=== PATIENT | male | born 2000 | race African-American/Black ===

== ENCOUNTER 2018-11-24 08:41 | Emergency (ER) | payer SELFPAY ==
[2018-11-24 09:04] VITALS: BP 124/77; PULSE 75; TEMP 98.3; BMI 27.3
--- NOTE | 2018-11-24 09:15 | PDOC ---
History of Present Illness - General Chief Complaint: Cold Symptoms Stated Complaint: SICK/BODY ACHES Time Seen by Provider: 11/24/18 09:07 History Source: Patient Exam Limitations: No Limitations - History of Present Illness Initial Comments: 11/24/18 09:14 Pt is a 18 y/o M who presents to the ED with 3 days of flu like symptoms. He states he does not feel well and has body aches. He has not been taking anything for his symptoms. Pt did not receive a flu shot this year. Pt also complains of a rash to his hands and groin for 2 weeks. States that the rash is more itchy at night. Past History - Travel Traveled outside of the country in the last 30 days: No Close contact w/someone who was outside of country & ill: No - Past Medical History Allergies/Adverse Reactions: Allergies Allergy/AdvReac Type Severity Reaction Status Date / Time Sulfa (Sulfonamide Allergy Verified 11/24/18 09:05 Antibiotics) Home Medications: Ambulatory Orders Albuterol Sulfate Inhaler - [Ventolin HFA Inhaler -] 1 - 2 inh PO Q4H #1 inhaler 11/24/18 Methylprednisolone [Medrol Dose Ba] 4 mg PO ASDIR #21 tablet 11/24/18 Permethrin 5% Topical Cream [Elimite -] 1 applic TP ONCE #60 g 11/24/18 - Suicide/Smoking/Psychosocial Hx Smoking History: Current every day smoker Number of Cigarettes Smoked Daily: 10 Information on smoking cessation initiated: Yes Hx Alcohol Use: No Drug/Substance Use Hx: No Review of Systems - Review of Systems Able to Perform ROS?: Yes Comments:: 11/24/18 09:13 CONSTITUTIONAL: Present: Fever, chills, body aches Absent: diaphoresis, generalized weakness, malaise, loss of appetite HEENT: Present: rhinorrhea, nasal congestion. Absent: throat pain, difficulty swallowing, mouth swelling, ear pain, eye pain, visual Changes CARDIOVASCULAR: Absent: chest pain, loss of consciousness, palpitations, irregular heart rate, peripheral edema RESPIRATORY: Present: Cough Absent: shortness of breath, dyspnea with exertion, orthopnea, wheezing, stridor, hemoptysis GASTROINTESTINAL: Absent: abdominal pain, abdominal distension, nausea, vomiting, diarrhea, constipation, melena, hematochezia SKIN: Present: rash Absent: rash, itching, pallor NEUROLOGIC: Present: headache Absent: focal weakness or paresthesias, dizziness, unsteady gait, seizure, mental status changes, bladder or bowel incontinence Is the patient limited [place] proficient: No *Physical Exam - Vital Signs Last Vital Signs Temp Pulse Resp BP Pulse Ox 98.3 F 75 16 124/77 99 11/24/18 09:01 11/24/18 09:01 11/24/18 09:01 11/24/18 09:01 11/24/18 09:01 - Physical Exam Comments: 11/24/18 09:13 GENERAL: Well developed, well nourished. Awake and alert. No acute distress. HEENT: Normocephalic, atraumatic. PERRLA, EOMI. No conjunctival pallor. Sclera are non- icteric. Moist mucous membranes. Oropharynx is clear. NECK: Supple. Full ROM. No JVD. Carotid pulses 2+ and symmetric, without bruits. No thyromegaly. No lymphadenopathy. CARDIOVASCULAR: Regular rate and rhythm. No murmurs, rubs, or gallops. Distal pulses are 2+ and symmetric. PULMONARY: No evidence of respiratory distress. Lungs clear to auscultation bilaterally. No wheezing, rales or rhonchi. ABDOMINAL: Soft. Non-tender. Non-distended. No rebound or guarding. No organomegaly. Normoactive bowel sounds. MUSCULOSKELETAL Normal range of motion at all joints. No bony deformities or tenderness. No CVA tenderness. EXTREMITIES: No cyanosis. No clubbing. No edema. No calf tenderness. SKIN: Papular pruritic rash in webbing of hands and groin. Warm and dry. Normal capillary refill. No rashes. No jaundice. NEUROLOGICAL: Alert, awake, appropriate. Cranial nerves 2-12 intact. No deficits to light touch and temperature in face, upper extremities and lower extremities. No motor deficits in the in face, upper extremities and lower extremities. Normoreflexic in the upper and lower extremities. Normal speech. Toes are down- going bilaterally. Gait is normal without ataxia. PSYCHIATRIC: Cooperative. Good eye contact. Appropriate mood and affect. Moderate Sedation - Procedure Monitoring Vital Signs: Procedure Monitoring Vital Signs Temperature 98.3 F 11/24/18 09:01 Pulse Rate 75 11/24/18 09:01 Respiratory Rate 16 11/24/18 09:01 Blood Pressure 124/77 11/24/18 09:01 O2 Sat by Pulse Oximetry (%) 99 11/24/18 09:01 Medical Decision Making - Medical Decision Making 11/24/18 10:18 Patient is a 18-year-old male who presents with 3 days of flulike symptoms and a rash to his hands and crying. On exam lungs are clear but tight to auscultation. Rash to the flexor surfaces and webbed surfaces of the hands. This is consistent with scabies. Patient is flu negative. DuoNeb and ibuprofen given with relief of symptoms. Repeat lung exam with good aeration to the bases. We'll treat for an upper respiratory infection and scabies at this time. Discharge home I discussed the physical exam findings, ancillary test results and final diagnoses with the patient. I answered all of the patient's questions. The patient was satisfied with the care received and felt comfortable with the discharge plan and treatment plan. The Patient agrees to follow up with the primary care physician/specialist within 24-72 hours. Return precautions were given. *DC/Admit/Observation/Transfer Diagnosis at time of Disposition: Scabies URI (upper respiratory infection) Qualifiers: URI type: unspecified URI Qualified Code(s): J06.9 - Acute upper respiratory infection, unspecified - Discharge Dispostion Disposition: HOME Condition at time of disposition: Stable Decision to Admit order: No - Prescriptions Prescriptions: Permethrin 5% Topical Cream [Elimite -] 1 applic TP ONCE #60 g - Referrals Referrals: Sorin Whittington MD [Staff Physician] - - Patient Instructions Printed Discharge Instructions: DI for Viral Upper Respiratory Infection -- Adult, DI for Scabies Additional Instructions: You have an upper respiratory infection, or the common cold. Your flu testing was negative today. Please take Motrin 800 mg every 8 hours as needed for pain not to exceed 3000 mg a day. Drink plenty of fluids. Use the inhaler every 4 hours as needed for shortness of breath Take the Medrol Dose pack as prescribed. Start it today Use the cream for the rash as directed Change your sheets prior to and after applications. Cough drops and warm tea may help your symptoms as well. Please follow up with her primary care doctor this week. Return to the emergency department if you have difficulty breathing, shortness of breath, worsening pain, nausea, vomiting or if you have any changes in your symptoms. - Post Discharge Activity Forms/Work/School Notes: Back to Work
[2018-11-24] MEDS ORDERED: IBUPROFEN 400 MG TABLET (FP) PO ONE ×2 (09:27→09:35)
[2018-11-24] MEDS ORDERED: ALBUTEROL SO4 2.5/IPRATROPIUM 0.5 INH SOL 3 ML VIAL.NEB. NEB ONE ×2 (09:27→09:35)
== END 2018-11-24 10:25 | disposition home or self-care (01) ==
LOC: JERFT 08:41
PROC: 3E0F7GC Introduction of Other Therapeutic Substance into Respiratory Tract, Via Natural or Artificial Opening (ICD-10-PCS; principal; 2018-11-24)
DX: J06.9 Acute upper respiratory infection, unspecified (principal); B97.89 Other viral agents as the cause of diseases classified elsewhere; B86 Scabies
CPT/HCPCS: 87804; 99281-25